=== PATIENT | female | born 1955 | race Caucasian/White ===

== ENCOUNTER → 2018-08-05 09:23 | Outpatient (CLI) | payer OTHER, SELFPAY ==
--- NOTE | 2018-08-05 09:27 | RAD_ITS ---
STUDY: AIR-CONTRAST UPPER GI SERIES AND SMALL BOWEL FOLLOW-THROUGH EXAMINATION. REASON FOR EXAM: Female, 62 years old. Left upper quadrant pain. FLUOROSCOPY TIME (if supplied): (1:24) minutes/seconds. 18 images were obtained. TECHNIQUE: The patient ingested barium. Multiple images of the esophagus, stomach and duodenum were obtained. Following this, a small bowel follow through examination was performed. COMPARISON: None. FINDINGS: The esophagus is unremarkable. There is no evidence of mass lesion. No evidence of gastroesophageal reflux. The stomach and duodenum are unremarkable. There is no evidence of ulceration. No mass lesion is present. A small bowel follow-through examination was then performed. The small bowel transit is normal. There is no evidence of intrinsic or extrinsic small bowel disease. The terminal ileum is unremarkable. RAD/Upper GI/w Small Bowel IMPRESSION: Unremarkable air contrast upper GI series and small bowel follow-through examination. Electronically Signed: Keaton Blanco MD at 10:07 EST Tel [phone], Service support ,
== END ==
PROVIDERS: Family Provider Family Medicine; PCP Family Medicine; Referring Provider Nurse Practitioner Family; Visit Provider Nurse Practitioner Family
DX: R10.12 Left upper quadrant pain (principal)
CPT/HCPCS: 74249

== ENCOUNTER 2019-01-12 07:34 | Emergency (ER) | payer OTHER, SELFPAY ==
[2019-01-12 07:35] VITALS: BP 137/66; PULSE 86; RESP 16; TEMP 37.1; O2SAT 96; BMI 24.0
--- NOTE | 2019-01-12 08:35 | CT_ITS ---
STUDY: CT ABDOMEN AND PELVIS WITH CONTRAST REASON FOR EXAM: Female, 63 years old. Left lower quadrant abdominal pain RADIATION DOSAGE (If Supplied By Facility): CTDIvol = ( 9.44 ) mGy, DLP = ( 592.81 ) mGycm TECHNIQUE: Transaxial images were obtained from the dome of the diaphragm to the symphysis pubis with oral contrast. 100 IV/Oral Isovue 300 was administered. Sagittal and coronal images were reconstructed. Individualized dose optimization techniques were used for this CT. COMPARISON: None. FINDINGS: Scarring in the lung bases. The visualized portions of the heart are within normal limits. Normal liver. Normal gallbladder and extrahepatic biliary system. Normal spleen. Normal pancreas. Normal bilateral adrenal glands. Normal right kidney. Normal left kidney. There is a small hiatal hernia. Normal small intestine. There is diverticulosis, with thickening of the descending colon wall, and pericolonic inflammation changes consistent with acute diverticulitis. The appendix is visualized and appears normal. Normal abdominal aorta. Normal inferior vena cava. Normal retroperitoneum. Normal urinary bladder. There is absence of the uterus consistent with a prior hysterectomy. Normal abdominal wall. There are diffuse degenerative changes of the visualized lumbar spine. CT/Abdomen/Pelvis WITH Contrast IMPRESSION: Acute uncomplicated descending colonic diverticulitis. Electronically Signed: Asad Hunt DO at 11:21 EDT Tel , Service support ,
[2019-01-12] MEDS: Morphine 4 MG/ML Syringe IV (08:46)
[2019-01-12] MEDS: 0.9% Normal Saline 1,000 ML 150 ML IV (08:46)
[2019-01-12] MEDS: Ondansetron 4 MG/2 ML Vial IV (08:47)
[2019-01-12 08:50] LABS: Absolute Lymphocyte Count 1.06 X10^3/ul (0.83-4.51); Absolute Neutrophil Count 10.6 X10^3/uL (2.0-7.7); Basophil# 0.02 X10^3/uL; Basophil% 0.2 % (0-1); Eosinophil# 0.19 X10^3/uL; Eosinophils% 1.5 % (0-5); Hemoglobin 13.4 g/dl (12.0-15.0); Lymphocyte # 1.06 X10^3/ul (4.0); Lymphocyte % 8.3 % (19-41); Mean Corp Hgb Conc 32.7 g/gl (32-36); Mean Corpuscular Volume 88.7 fL (81-99); Mean Platelet Vol. 9.3 fl (6.2-12.0); Monocyte# 0.95 X10^3/uL; Monocyte% 7.4 % (0-10); Neutrophil % 82.4 % (47-70); Platelet Count 261 K/mm3 (150-450); RBC Distribution Width CV 14.1 % (11.6-14.6); Red Blood Count 4.62 M/mm3 (4.2-5.4); White Blood Count 12.8 K/mm3 (4.4-11.0)
[2019-01-12 08:51] LABS: POSITIVE COUNT NO; POSITIVE DIFFERENTIAL NO; POSITIVE MORPHOLOGY NO
[2019-01-12 08:55] LABS: Anion Gap 7 (5-15); BUN 14 mg/dL (7-18); BUN/Creat Ratio 17.3 RATIO (10-20); Calcium,Total 8.8 mg/dL (8.5-10.1); Chloride 106 mmol/L (98-107); Creatinine, Serum 0.81 mg/dL (0.55-1.02); EST Glomerular Filtration Rate 76 mL/min (>60); Est Glom Filt Rate - Afr Amer 91 mL/min (>60); Estimated Creatinine Clearance 60.59 ml/min; Glucose 122 mg/dL (74-106); Potassium 3.7 mmol/L (3.5-5.1); Sodium Level 138 mmol/L (136-145)
--- NOTE | 2019-01-12 09:20 | ED.VISSUMM ---
- ER Visit Summary Date of Service: 01/12/19 Chief Complaint: Abdominal pain History of Present Illness: The patient is a 63 F with 3 to 4-day history of left lower quadrant abdominal pain. Patient states the pain got worse yesterday. She did note some chills and sweats yesterday. She reports decreased appetite. She has not noted diarrhea or constipation. She went to urgent care initially where her urine was clear and she was sent to the emergency room for further evaluation. Patient does report history of diverticulitis several years in the past. She states she has had some problems with intermittent reflux. Prior surgical history significant for hysterectomy. Physical Examination: Vital signs unremarkable. Patient sitting upright in bed no acute distress. Heart is regular rate and rhythm. Lung sounds are clear. Abdomen is soft with focal tenderness in the left lower quadrant. There is no guarding or rebound. Hypoactive bowel sounds are present. Back examination reveals no CVA tenderness. Test Results: CBC was a white count 12.8 with 82% neutrophils. Chemistry studies normal. CT abdomen pelvis with contrast reveals acute uncomplicated diverticulitis. Emergency Department Course and Treatment: Patient was initially given morphine and Zofran for pain and nausea. Test results are discussed with the patient. She will be treated with a course of Cipro and Flagyl, first doses given here. She was given return instructions. Treatment Plan: [] Disposition: Discharge Impression: Diverticulitis This note was generated with [employer] dictation software. It may contain incorrect words, spelling, and punctuation that were not noted in review of the chart prior to signing ED Disposition - Plan for ED Patient: Disposition: Home or Assisted Living Instructions: Diverticulitis Prescriptions: Ciprofloxacin [Cipro] 500 mg PO BID #14 tab Prescription Printed metroNIDAZOLE [Flagyl] 500 mg PO Q6H #40 tab Prescription Printed Referrals: Jeffrey Mcgill III, MD [Primary Care Provider] - 1 Week
[2019-01-12 10:17] VITALS: BP 117/61; PULSE 75; RESP 16; O2SAT 95
[2019-01-12 12:00] VITALS: BP 116/60; PULSE 76; PULSE 77; RESP 16; O2SAT 93
[2019-01-12] MEDS: metroNIDAZOLE 500 MG Tablet PO (12:01)
[2019-01-12] MEDS: Ciprofloxacin 500 MG Tablet PO (12:01)
== END 2019-01-12 12:58 | disposition home or self-care (01) ==
PROVIDERS: Emergency Provider Emergency Medicine; Family Provider Family Medicine; PCP Family Medicine
DX: K57.32 Diverticulitis of large intestine without perforation or abscess without bleeding (principal); K21.9 Gastro-esophageal reflux disease without esophagitis; Z79.82 Long term (current) use of aspirin; Z79.899 Other long term (current) drug therapy; Z90.710 Acquired absence of both cervix and uterus
CPT/HCPCS: 74177; 80048; 85025; 96361; 96374; 96375; 99284; J7030; Q9967; A4216; J2405

== ENCOUNTER 2019-01-18 10:19 | Emergency (ER) | payer OTHER, SELFPAY ==
[2019-01-18 10:20] VITALS: BP 152/77; PULSE 72; RESP 16; TEMP 36.2; O2SAT 96; BMI 23.9
--- NOTE | 2019-01-18 10:33 | ED.DCSUM_ITS ---
History of Present Illness <Jared Coello - Last Filed: 01/18/19 11:09> Informant: Patient Onset: Today Narrative: Patient presents to the ED stating this morning she developed feelings of bladder spasming. She is afraid she may have a urinary tract infection. 6 days ago, she was at this facility and diagnosed with diverticulitis and discharged home with ciprofloxacin and Flagyl. Patient states she has been taking her medications as prescribed and actually feels as though her diverticulitis symptoms are improving. She has an appointment with her PCP to follow-up in 2 days, however did not feel she could wait until then. She denies any fever, chills, nausea, vomiting, flank pain, dysuria. <Leanne Bolanos - Last Filed: 01/18/19 11:12> Chief Complaint: Complaint Past Medical History <Jared Coello - Last Filed: 01/18/19 11:09> Smoking Status: Never smoker <Leanne Bolanos - Last Filed: 01/18/19 11:12> - Allergies and Home Meds Allergies/Adverse Reactions: Allergies No Known Allergies Allergy (Verified 01/18/19 10:21) Primary Care Physician: Jeffrey Mcgill III, MD [Primary Care Provider] - Review of Systems General: Denies: Chills, Fever, Sweats Eyes: Denies: Visual changes - bilaterally, Diplopia ENT: Denies: Rhinorrhea, Sore throat Cardiovascular: Denies: Chest pain, Palpitations Respiratory: Denies: Dyspnea, Cough, Dyspnea on exertion Gastrointestinal: Denies: Abdominal pain, Nausea, Vomiting, Diarrhea, Melena, Hematochezia Genitourinary: Reports: - - Bladder spasms. Denies: Dysuria, Hematuria, Frequency Musculoskeletal: Denies: Back pain, Extremity Pain Skin: Denies: Rash, Wounds Neurological: Denies: Headache, Weakness, Numbness <Leanne Bolanos - Last Filed: 01/18/19 11:12> Physical Exam Vital Signs/Narrative: Vital Signs Temp Pulse Resp BP Pulse Ox 01/18/19 10:20 97.2 F L 72 16 152/77 H 96 <Jared Coello - Last Filed: 01/18/19 11:09> Vital Signs/Narrative: Vital Signs Temp Pulse Resp BP Pulse Ox 01/18/19 10:20 97.2 F L 72 16 152/77 H 96 General: Well nourished, Well developed, No Acute Distress Head: Normocephalic, Atraumatic Eyes: Perrl, EOMI ENT: Moist mucous membranes, No rhinorrhea Neck: Supple, Nontender Cardiovascular: Regular rate, Regular rhythm, No murmurs Respiratory: No distress, CTA bilaterally, Chest nontender Abdomen: Soft, Nontender, Nondistended, Normal bowel sounds Back: Nontender, Normal Inspection, - - No CVA tenderness bilaterally. Extremities: Nontender, No edema Skin: Normal color, No rash Neurological: Alert, Oriented x3, Cranial nerves II-XII grossly intact, Normal Strength, Normal Sensation Psychological: Normal affect, Normal Mood <Leanne Bolanos - Last Filed: 01/18/19 11:12> Diagnostic/Tx/Re-eval - Medical Decision Making Clinically, my suspicion is the patient likely has some bladder irritation from underlying diverticulitis. She had no symptoms of fistula. She had no fever. Her urine is unremarkable. Her symptoms of actually been improving as far as her diverticulitis is concerned. At this point I do feel that she is safe for outpatient therapy. She was counseled concerning symptoms and reasons to return. <Jared Coello - Last Filed: 01/18/19 11:09> - Medical Decision Making Patient presents to the ED with primary complaint of feeling of bladder muscle spasms. Upon arrival, she appears well nontoxic. Vital signs within normal limits. Her abdomen is soft and nontender with no guarding or rigidity. She benavidez s no CVA tenderness. She does claim her diverticulitis symptoms are improving. Urinalysis is fairly unremarkable. At this time, I do not think further work-up is warranted. Patient was educated that this cramping may be residual symptom from her diverticulitis. She was advised to continue her antibiotic as prescribed and take [id number] analgesics. She will follow-up with her PCP as scheduled in 2 days. She was educated on signs/symptoms to return the ED. She is provided discharge instructions. She is agreeable to plan. <Leanne Bolanos - Last Filed: 01/18/19 11:12> ED Disposition <Jared Coello - Last Filed: 01/18/19 11:09> <Leanne Bolanos - Last Filed: 01/18/19 11:12> - Plan for ED Patient: Disposition: Home or Assisted Living Diagnosis: Diverticulitis Instructions: Diverticulitis Referrals: Jeffrey Mcgill III, MD [Primary Care Provider] -
[2019-01-18 10:41] LABS: Bacteria 0 SEEN /hpf (None Seen); Mucous, Urine 0 SEEN /hpf (<or=2+); Red Blood Cells-Urine 0 SEEN /hpf (0-5); White Blood Cells 0 SEEN /hpf (0-5)
[2019-01-18 11:02] LABS: Color, Urine Yellow (Yellow); Glucose, Dipstick Normal (Normal); Ketone-Dipstick Negative (Negative); Leukocyte Esterase-Dipstick 25 /ul (Negative); Nitrite-Dipstick Negative (Negative); Occult Blood-Urine Negative /ul (Negative); Protein-Dipstick Negative (Negative); Specific Gravity, Urine 1.005 (1.002-1.030); Squamous Epithelial Cells - UA 0-5 SEEN /hpf (5-10); Urine Bilirubin Dipstick Negative (Negative); Urine Clarity Clear (Clear); Urine Urobilinogen Normal (Normal); Urine pH 6.5 (5.0 - 8.0)
--- NOTE | 2019-01-18 11:19 | ED.RN ---
DISCHARGE INSTRUCTIONS GIVEN TO AND REVIEWED WITH PATIENT, PATIENT DENIES QUESTIONS OR CONCERNS AND VOICES UNDERSTANDING OF DISCHARGE INSTRUCTIONS. PT AMBULATES OUT OF ROOM WITHOUT DIFFICULTY.
== END 2019-01-18 11:20 | disposition home or self-care (01) ==
LOC: ED 11:16
PROVIDERS: Emergency Provider Physician Assistant; Family Provider Family Medicine; PCP Family Medicine
DX: K57.92 Diverticulitis of intestine, part unspecified, without perforation or abscess without bleeding (principal)
CPT/HCPCS: 81001; 99282

== ENCOUNTER 2021-10-14 13:10 | Emergency (ER) | payer MEDICARE, SELFPAY ==
[2021-10-14 13:13] VITALS: BP 164/70; PULSE 90; RESP 14; TEMP 35.5; O2SAT 98; BMI 22.7
--- NOTE | 2021-10-14 13:23 | EKG12_ITS ---
Test Reason : CP Blood Pressure : / mmHG Vent. Rate : 071 BPM Atrial Rate : 071 BPM P-R Int : 142 ms QRS Dur : 082 ms QT Int : 384 ms P-R-T Axes : 051 028 043 degrees QTc Int : 417 ms Normal sinus rhythm Normal ECG Confirmed by JAYLEN ANDERSON MD ([id number]), index editor GENESIS ESPOSITO ([id number]) on 10/17/2021 10:58:25 AM Referred By: VALERIE Confirmed By:JAYLEN ANDERSON MD
--- NOTE | 2021-10-14 13:54 | EKG12_ITS ---
Test Reason : Blood Pressure : / mmHG Vent. Rate : 067 BPM Atrial Rate : 067 BPM P-R Int : 128 ms QRS Dur : 082 ms QT Int : 404 ms P-R-T Axes : 024 041 047 degrees QTc Int : 426 ms Normal sinus rhythm Normal ECG Confirmed by MONICA SHETTY, JAYLEN ([id number]), editor greeting card GENESIS ESPOSITO ([id number]) on 10/17/2021 10:44:05 AM Referred By: VALERIE Confirmed By:JAYLEN ANDERSON MD
--- NOTE | 2021-10-14 13:54 | RAD_ITS ---
STUDY: X-RAY CHEST REASON FOR EXAM: Female, 66 years old. chest pain TECHNIQUE: Single AP portable view of the chest. COMPARISON: None. FINDINGS: The lungs are clear and expanded. There is no demonstrated pleural abnormality. Normal size heart. Normal mediastinum and jada. Normal visualized pulmonary arteries. Normal visualized aortic arch and descending thoracic aorta. Normal visualized thoracic spine. Normal visualized ribs, clavicles, and shoulders. There is no demonstrated abnormality of the visualized soft tissue structures of the upper abdomen. RAD/Chest 1 View (Portable) IMPRESSION: Normal x-ray examination of the chest. Electronically Signed: Palmer Littlejohn MD at 14:54 EDT ,
--- NOTE | 2021-10-14 13:55 | ED.VIS.CHEST ---
HPI History of Present Illness Chief Complaint: Chest Pain Detail of Chief Complaint: Chest pain that started yesterday Informant: patient Narrative Narrative: Patient presents to the emergency department complaint of chest discomfort that started yesterday after dinner. Patient describes a pressure/ache in the center of her chest that she rates currently a 7 out of 10. She denies any radiation to the arm or neck or jaw. She denies shortness of breath. She has had some nausea and decreased appetite today. She denies exertional dyspnea. She is not had discomfort like this before. Patient has no other medical history. She has no heart history. Patient is not a smoker. Patient states pain worse at times with certain movements. She is not had any exertional chest pain or exertional shortness of breath. [facility] Medical History (Updated 10/14/21 @ 15:[address] Edson Merchant, ) Parathyroid abnormality Home Medications aspirin 81 mg PO DAILY@0800 01/12/19 [History Last Taken Unknown] Allergy/AdvReac Type Severity Reaction Status Date / Time No Known Allergies Allergy Verified 10/14/21 13:13 Surgical History H/O: hysterectomy Social History Smoking Status: Never smoker ROS ROS ED Review of Systems ROS Unobtainable: other Constitutional Constitutional ED: Reports lethargy; Denies chills, fever(s), sweats or weight loss Eyes Eyes: Denies blurry vision, change in vision or diplopia ENT ENT ED: Denies rhinorrhea or sore throat Cardiovascular Cardiovascular: Reports chest pain and racing heartbeat; Denies orthopnea Respiratory/Chest Respiratory/Chest: Reports dyspnea and dyspnea on exertion; Denies cough, orthopnea or sputum Gastrointestinal Gastrointestinal: Denies abdominal pain, diarrhea, nausea or vomiting Genitourinary Genitourinary ED: Denies dysuria, hematuria or urinary frequency Musculoskeletal Musculoskeletal: Denies arthralgias, back pain, myalgias or neck pain Integumentary Denies abscess, Abrasions or rash Neurologic Neurologic: Denies headache(s) or weakness Psychiatric Psychiatric: Denies anxiety, depression or suicidal thoughts Endocrine Endocrinology: Denies polydipsia, polyphagia or polyuria Hematologic/Lymphatic Hematologic/Lymphatic: Denies easy bleeding, easy bruising or lymphadenopathy Allergic/Immunologic Allergic/Immunologic ED: Denies mouth swelling, tongue swelling or urticaria EXAM Physical Exam Const Vital Signs: 10/14/21 13:13 10/14/21 14:29 10/14/21 14:31 Temperature 96 F L Temperature Source Temporal Pulse Rate 90 75 Respiratory Rate 14 Blood Pressure 164/70 H 164/76 H Blood Pressure Mean 101 Pulse Ox 98 Oxygen Delivery Method Room Air Room Air 10/14/21 15:13 Temperature Temperature Source Pulse Rate 66 Respiratory Rate 17 Blood Pressure 137/72 H Blood Pressure Mean 93 Pulse Ox 98 Oxygen Delivery Method Room Air Positive well nourished and well developed General Appearance ED: well developed and NAD HEENT Reports TM's clear and moist mucous membranes normocephalic and atraumatic; Negative for trauma or tenderness Tympanic Membrane ED: Yes TM's clear Eyes PERRL and EOMs intact bilaterally General Eye ED: Negative for pale conjunctiva or scleral icterus Neck no lymphadenopathy, supple and no JVD General: Negative for tenderness Chest Wall inspection of chest normal and palpation of chest normal Chest: Negative for tenderness Resp normal respiratory effort and clear to auscultation bilaterally Effort and Inspection: Negative for respiratory distress or pain with movement Auscultation: Negative for rhonchi, wheezes or diminished lung sounds Cardio regular rate, regular rhythm, S1 normal heart sound, S2 normal heart sound and no murmurs Peripheral Pulses: pulses 2+ throughout GI normal to inspection, nondistended, normoactive bowel sounds, soft to palpation, non-tender, non-distended and no masses Back/Spine no CVA tenderness and no thoracic nor lumbar tenderness Extremity normal to inspection General Extremety ED: Negative for edema General Extremity: Negative for edema Neuro oriented x3, CN's II-XII intact bilaterally, no sensory deficits noted and gait normal Sensorium / Orientation: awake, alert, oriented to person, oriented to place and oriented to time Motor Exam: strength 5/5 throughout and strength abnormal Psych mental status grossly normal Skin no rashes or lesions noted and no wounds Heart Score History: Moderately Suspicious ECG: Normal Age: >/= 65 years Risk Factors: No Risk Factors Troponin: </= Normal Limit Score: 3 MDM MDM MDM Narrative Medical decision making narrative: IV established. Patient placed on a cardiac sonographer. Patient was given aspirin and then subsequently given sublingual nitro which apparently gave her headache and she had increased chest discomfort with that. Patient was then given 4 mg of morphine which really seem to resolve her pain. Her lab work-up was normal. Her D-dimer was normal. Her chest x-ray was normal. Patient I feel is low risk with a heart score of 3. Shared decision making-I discussed treatment options with patient as etiology of her chest pain is unclear. Given that she is had continuous pain for more than 12 hours and has normal EKG and normal troponin and low risk profile I did offer to admit her for stress testing which would might not be done until Saturday and today being Saturday. The other option would be to discharge patient and have her follow-up with her primary care physician and have outpatient stress testing potentially if her symptoms persist. Patient tells me that she fell a few weeks ago and injured her back when she fell again some steps and she thought perhaps some of that pain was radiating around to the front of her chest. At this point etiology of her chest pain is unclear although I feel she is low risk for acute coronary syndrome. Patient does not want to be admitted and would prefer to follow-up with her primary care physician. She will return if symptoms worsen in any way. A second EKG was obtained after patient initially complained of more pain after nitro and this was read by myself as normal sinus rhythm with a rate of 67 bpm with no acute ST segment changes. Lab Data Attestation: I reviewed the patient's lab results. Labs: Laboratory Results - last 24 hr 10/14/21 10/14/21 10/14/21 14:10 14:10 14:10 WBC 8.2 RBC 4.90 Hgb 14.4 Hct 43.6 MCV 89.0 MCH 29.4 MCHC 33.0 RDW Std Deviation 43.7 RDW Coeff of Darrell 13.3 Plt Count 283 MPV 9.0 Immature Gran % (Auto) 0.100 Neut % (Auto) 76.1 H Lymph % (Auto) 18.5 L [place] % (Auto) 4.3 Eos % (Auto) 0.6 Baso % (Auto) 0.4 Absolute Neuts (auto) 6.2 Absolute Lymphs (auto) 1.51 Nucleated RBC % 0 D-Dimer Quant (PE/DVT) 0.31 Sodium 140 Potassium 3.7 Chloride 107 Carbon Dioxide 28.0 Anion Gap 5 BUN 14 Creatinine 0.71 Estim Creat Clear Calc 47.14 Est GFR (MDRD) Af Amer 106 Est GFR (MDRD) Non-Af 88 BUN/Creatinine Ratio 19.8 Glucose 101 Calcium 9.4 Troponin I High Sens < 3 L Radiography Chest X-Ray - ED: 1 View Diagnostic Testing: Clinical Impression(s) from Imaging Studies Chest X-Ray 10/14/21 13:54 IMPRESSION: Normal x-ray examination of the chest. Electronically Signed: Palmer Littlejohn MD at 14:54 EDT , 1 view chest x-ray obtained interpreted by myself as no acute disease process. Radiology in agreement. EKG Initial EKG: Attestation: I personally reviewed and interpreted this EKG as follows: Comments: Sinus rhythm with a rate of 71 bpm with no acute ST segment changes Discharge Plan Triage Chief Complaint: Chest Pain ED Provider: Edson Merchant Dx/Rx/DC Orders Clinical Impression: Chest pain Instructions: ED Chest Pain, Uncertain Cause Prescriptions: No Action aspirin 81 MG tablet,chewable 81 mg PO DAILY@0800 RF: 0 Primary Care Provider: James Peña Referrals: James Peña MD [Primary Care Provider] - 3-5 Days Disposition Disposition: Home, Self Care
[2021-10-14 14:15] LABS: Absolute Lymphocyte Count 1.51 X10^3/uL (0.83-4.51); Absolute Neutrophil Count 6.2 X10^3/uL (2.0-7.7); Basophil# 0.03 X10^3/uL; Basophil% 0.4 % (0-1); Eosinophil# 0.05 X10^3/uL; Eosinophils% 0.6 % (0-5); Hematocrit 43.6 % (37-47); Hemoglobin 14.4 g/dL (12.0-15.0); Lymphocyte # 1.51 X10^3/ul (0.83-4.51); Lymphocyte % 18.5 % (19-41); Mean Corpuscular Hgb 29.4 pg (27.0-32.0); Monocyte# 0.35 X10^3/uL; Monocyte% 4.3 % (0-10); NRBC Flagged by Analyzer 0 % (0-5); Neutrophil % 76.1 % (47-70); Platelet Count 283 K/mm3 (150-450); RBC Distribution Width CV 13.3 % (11.6-14.6); RBC Distribution Width SD 43.7 fl (35.1-43.9); White Blood Count 8.2 K/mm3 (4.4-11.0)
[2021-10-14] MEDS: Aspirin 81 MG TAB.CHEW 324 MG PO (14:21)
[2021-10-14 14:26] LABS: D-Dimer Quantitative (DVT/PE) 0.31 FEU/ug/m (0.27-0.49)
[2021-10-14] MEDS: 0.9% Normal Saline 1,000 ML 150 ML IV (14:28)
[2021-10-14 14:29] VITALS: BP 164/76; PULSE 75
[2021-10-14] MEDS: Nitroglycerin SL (ED/IMG/CATH) 0.4 MG TABLET SL (14:29)
[2021-10-14 14:34] LABS: Anion Gap 5 (5-15); BUN 14 mg/dL (7-18); BUN/Creat Ratio 19.8 RATIO (10-20); Calcium,Total 9.4 mg/dL (8.5-10.1); Chloride 107 mmol/L (98-107); Creatinine, Serum 0.71 mg/dL (0.55-1.02); EST Glomerular Filtration Rate 88 mL/min (>60); Est Glom Filt Rate - Afr Amer 106 mL/min (>60); Estimated Creatinine Clearance 47.14 ml/min; Glucose 101 mg/dL (74-106); Potassium 3.7 mmol/L (3.5-5.1); Sodium Level 140 mmol/L (136-145); Troponin-I HS < 3 pg/mL (3.0-54.0)
[2021-10-14] MEDS: Morphine 4 MG/ML Syringe IV (14:46)
[2021-10-14 15:13] VITALS: BP 137/72; PULSE 66; RESP 17; O2SAT 98
[2021-10-14 16:00] VITALS: BP 134/68; PULSE 71; RESP 15; O2SAT 99
== END 2021-10-14 16:01 | disposition home or self-care (01) ==
PROVIDERS: Emergency Provider Emergency Medicine; PCP Family Medicine; Visit Provider Emergency Medicine
DX: R07.9 Chest pain, unspecified (principal); R11.0 Nausea; R06.00 Dyspnea, unspecified; Z79.82 Long term (current) use of aspirin
CPT/HCPCS: 71045; 80048; 84484; 85025; 85379; 93005; 96361; 96374; 99285; A4216

== ENCOUNTER 2022-01-20 19:40 | Emergency (ER) | payer MEDICARE, SELFPAY ==
[2022-01-20 19:41] VITALS: BP 130/75; PULSE 94; RESP 16; TEMP 36.4; O2SAT 98; BMI 23.1
[2022-01-20 19:42] VITALS: BP 130/75; PULSE 94; RESP 16; TEMP 36.4; O2SAT 98
--- NOTE | 2022-01-20 20:03 | CT_ITS ---
STUDY: CT ABDOMEN AND PELVIS WITH CONTRAST REASON FOR EXAM: Female, 66 years old. llq abdominal pain RADIATION DOSAGE (If Supplied By Facility): CTDIvol = ( 9.89 ) mGy, DLP = ( 456.20 ) mGycm TECHNIQUE: Transaxial images were obtained from the dome of the diaphragm to the symphysis pubis without oral contrast. IV 100mL Isovue-370 was administered. Sagittal and coronal images were reconstructed. Individualized dose optimization techniques were used for this CT. COMPARISON: 01/12/2019 FINDINGS: The visualized lung bases are unremarkable. The visualized portions of the heart are within normal limits. Normal liver. Normal gallbladder and extrahepatic biliary system. Normal spleen. Normal pancreas. Normal bilateral adrenal glands. Normal right kidney. Normal left kidney. Normal visualized stomach. Normal small intestine. There are multiple colonic diverticula consistent with diverticulosis. There is non-visualization of the appendix. Normal abdominal aorta. Normal inferior vena cava. Normal retroperitoneum. Normal urinary bladder. Normal abdominal wall. 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 5 mm of anterolisthesis of L5 on S1 consistent with grade [address]/Abdomen/Pelvis W IV Cont ONLY IMPRESSION: Normal enhanced CT of the abdomen and pelvis. Electronically Signed: Palmer Littlejohn MD at 22:21 EDT ,
--- NOTE | 2022-01-20 20:05 | ED.VIS.GI ---
HPI HPI - GI History of Present Illness Chief Complaint: Abd Pain Narrative Narrative: 60-year-old female with distant history of diverticulitis with 24 hours of cramping lower abdominal pain. She admits to diarrhea and excess gas. She states her pain is 6 out of 10 today. She was seen in urgent care yesterday on 01 28. She was told to come to the emergency room but she did not. Patient has not had any fever, chills, nausea, vomiting. From abdominal surgery was a hysterectomy. No urinary complaints. No vaginal complaints. PFSH PFSH Medical History Acute sinusitis, unspecified Diverticulitis Encounter for screening for COVID-19 Parathyroid abnormality Home Medications aspirin 81 mg chewable tablet 81 mg PO DAILY@0800 01/12/19 [History Last Taken Unknown] amoxicillin 875 mg-potassium clavulanate 125 mg tablet 1 tab PO BID #24 tabs 01/20/22 [Rx Last Taken Unknown] Allergy/AdvReac Type Severity Reaction Status Date / Time No Known Allergies Allergy Verified 01/20/22 19:42 Family History (Updated 01/20/22 @ 20:[address] Edilia Prieto MD) Mother Heart disease Hypertension Hx of CABG Father Heart disease PAF (paroxysmal atrial fibrillation) Surgical History H/O: hysterectomy Social History Smoking Status: Never smoker ROS ROS ED Constitutional Constitutional ED: Denies chills or fever(s) ENT ENT ED: Denies rhinorrhea or sore throat Cardiovascular Cardiovascular: Denies chest pain or palpitations Respiratory/Chest Respiratory/Chest: Denies cough or dyspnea Gastrointestinal Gastrointestinal: Reports abdominal pain and diarrhea Genitourinary Genitourinary ED: Denies dysuria or hematuria Musculoskeletal Musculoskeletal: Denies arthralgias or back pain Integumentary Denies abscess or Abrasions Neurologic Neurologic: Denies headache(s) or paresthesias Psychiatric Psychiatric: Denies anxiety or depression EXAM Physical Exam Const Vital Signs: 01/20/22 19:41 01/20/22 19:42 01/20/22 21:04 Temperature 97.5 F L 97.5 F L 98.7 F Temperature Source Temporal Temporal Oral Pulse Rate 94 94 81 Respiratory Rate 16 16 16 Blood Pressure 130/75 H 130/75 H 124/54 H Blood Pressure Mean 93 93 77 Pulse Ox 98 98 95 Oxygen Delivery Method Room Air Room Air Room Air 01/20/22 22:00 Temperature Temperature Source Pulse Rate 82 Respiratory Rate 16 Blood Pressure 128/60 H Blood Pressure Mean 82 Pulse Ox 96 Oxygen Delivery Method Room Air Positive well nourished General Appearance ED: NAD and pallor HEENT Reports moist mucous membranes normocephalic and atraumatic Eyes PERRL and EOMs intact bilaterally General Eye ED: Negative for pale conjunctiva or scleral icterus Cardio regular rate and regular rhythm GI GI Narrative: And is palpation left lower quadrant right lower quadrant. Abdomen has no peritoneal signs. Back/Spine no CVA tenderness Neuro CN's II-XII intact bilaterally Sensorium / Orientation: alert Psych mental status grossly normal Skin General Skin Exam: jaundice and pallor MDM MDM MDM Narrative Medical decision making narrative: Patient presented with lower abdominal pain. She is not had a fever or nausea, vomiting. She states that the pain has been persistent. She has a history of diverticulitis. CBC is obtained and this shows a leukocytosis of 15.6. There is a slight left shift. Hemoglobin hematocrit are stable. Platelets normal. Renal function electrolytes within normal limits. Urinalysis negative for infection but does show small amount of urine ketones. Patient was given IV fluids. CT abdomen pelvis with IV contrast interpreted by the radiologist as normal. Given her history of diverticulitis I will treat her as this and she will be started on Augmentin here in the ED. She declines analgesia and antiemetics. She is given return precautions. Impression: 1 abdominal pain 2. Diverticulitis 3. Leukocytosis Lab Data Attestation: I reviewed the patient's lab results. Labs: Laboratory Results - last 24 hr 01/20/22 01/20/22 01/20/22 19:58 19:58 19:58 WBC 15.6 H RBC 4.66 Hgb 13.8 Hct 40.9 MCV 87.8 MCH 29.6 MCHC 33.7 RDW Std Deviation 43.1 RDW Coeff of Darrell 13.3 Plt Count 302 MPV 9.4 Immature Gran % (Auto) 0.400 Neut % (Auto) 78.5 H Lymph % (Auto) 13.2 L [place] % (Auto) 6.0 Eos % (Auto) 1.6 Baso % (Auto) 0.3 Absolute Neuts (auto) 12.3 H Absolute Lymphs (auto) 2.06 Nucleated RBC % 0 Sodium 139 Potassium 3.7 Chloride 106 Carbon Dioxide 25.0 Anion Gap 8 BUN 10 Creatinine 0.74 Estim Creat Clear Calc 47.14 Est GFR (MDRD) Af Amer 100 Est GFR (MDRD) Non-Af 83 BUN/Creatinine Ratio 13.5 Glucose 101 Calcium 9.5 Urine Color Yellow Urine Clarity Clear Urine pH 6.0 Ur Specific [place] 1.015 Urine Protein 15 H Urine Glucose (UA) Normal Urine Ketones 150 A* Urine Occult Blood 10 H Urine Nitrite Negative Urine Bilirubin Negative Urine Urobilinogen Normal Ur Leukocyte Esterase 25 H Radiography Diagnostic Testing: Clinical Impression(s) from Imaging Studies Abdomen/Pelvis CT 01/20/22 20:03 IMPRESSION: Normal enhanced CT of the abdomen and pelvis. Electronically Signed: Palmer Littlejohn MD at 22:21 EDT , Discharge Plan Triage Chief Complaint: Abd Pain ED Provider: Joaquin Washington Dx/Rx/DC Orders Instructions: ED Diverticulitis Prescriptions: New amoxicillin-pot clavulanate 875-125 mg tablet 1 tab PO BID Qty: 24 0RF No Action aspirin 81 MG tablet,chewable 81 mg PO DAILY@0800 Primary Care Provider: James Peña Referrals: James Peña MD [Primary Care Provider] - Disposition Disposition: Home, Self Care
[2022-01-20 20:18] LABS: Absolute Lymphocyte Count 2.06 X10^3/uL (0.83-4.51); Absolute Neutrophil Count 12.3 X10^3/uL (2.0-7.7); Basophil# 0.04 X10^3/uL; Basophil% 0.3 % (0-1); Eosinophil# 0.25 X10^3/uL; Eosinophils% 1.6 % (0-5); Hematocrit 40.9 % (37-47); Hemoglobin 13.8 g/dL (12.0-15.0); Lymphocyte # 2.06 X10^3/ul (0.83-4.51); Lymphocyte % 13.2 % (19-41); Mean Corp Hgb Conc 33.7 g/dL (32-36); Mean Corpuscular Hgb 29.6 pg (27.0-32.0); Mean Corpuscular Volume 87.8 fL (81-99); Mean Platelet Vol. 9.4 fl (6.2-12.0); Monocyte# 0.93 X10^3/uL; NRBC Flagged by Analyzer 0 % (0-5); Neutrophil # 12.26 X10^3/uL (2.7-7.7); Neutrophil % 78.5 % (47-70); Platelet Count 302 K/mm3 (150-450); RBC Distribution Width CV 13.3 % (11.6-14.6); RBC Distribution Width SD 43.1 fl (35.1-43.9); Red Blood Count 4.66 M/mm3 (4.2-5.4); White Blood Count 15.6 K/mm3 (4.4-11.0)
[2022-01-20 20:27] LABS: Color, Urine Yellow (Yellow); Glucose, Dipstick Normal (Normal); Leukocyte Esterase-Dipstick 25 /ul (Negative); Nitrite-Dipstick Negative (Negative); Occult Blood-Urine 10 /ul (Negative); Protein-Dipstick 15 mg/dl (Negative); Specific Gravity, Urine 1.015 (1.002-1.030); Urine Bilirubin Dipstick Negative (Negative); Urine Clarity Clear (Clear); Urine Urobilinogen Normal (Normal)
[2022-01-20 20:30] LABS: Ketone-Dipstick 150 mg/dl (Negative)
[2022-01-20 20:39] LABS: Anion Gap 8 (5-15); BUN 10 mg/dL (7-18); BUN/Creat Ratio 13.5 RATIO (10-20); Calcium,Total 9.5 mg/dL (8.5-10.1); Chloride 106 mmol/L (98-107); Creatinine, Serum 0.74 mg/dL (0.55-1.02); EST Glomerular Filtration Rate 83 mL/min (>60); Est Glom Filt Rate - Afr Amer 100 mL/min (>60); Estimated Creatinine Clearance 47.14 ml/min; Glucose 101 mg/dL (74-106); Potassium 3.7 mmol/L (3.5-5.1); Sodium Level 139 mmol/L (136-145)
[2022-01-20] MEDS: 0.9% Normal Saline 1,000 ML 999 ML IV (21:01)
[2022-01-20 21:04] VITALS: BP 124/54; PULSE 81; RESP 16; TEMP 37.1; O2SAT 95
[2022-01-20 22:00] VITALS: BP 128/60; PULSE 82; RESP 16; O2SAT 96
[2022-01-20 22:37] VITALS: BP 124/60; PULSE 78; RESP 16; O2SAT 96
[2022-01-20] MEDS: Amox/Clavulanate 875 MG Tablet PO (22:38)
== END 2022-01-20 22:40 | disposition home or self-care (01) ==
PROVIDERS: Emergency Provider Student in an Organized Health Care Education/Training Program; PCP Family Medicine; Visit Provider Student in an Organized Health Care Education/Training Program
DX: K57.92 Diverticulitis of intestine, part unspecified, without perforation or abscess without bleeding (principal); D72.829 Elevated white blood cell count, unspecified; R14.0 Abdominal distension (gaseous); Z79.82 Long term (current) use of aspirin
CPT/HCPCS: 74177; 80048; 81002; 85025; 96360; 96361; 99283; J7030; Q9967; A4216

== ENCOUNTER 2024-08-05 13:21 | Emergency (ER) | payer MEDICARE, SELFPAY ==
[2024-08-05 13:21] VITALS: BP 142/78; PULSE 88; RESP 18; TEMP 36.9; O2SAT 98; BMI 24.9
[2024-08-05 14:10] LABS: Absolute Lymphocyte Count 1.81 X10^3/uL (0.83-4.51); Absolute Neutrophil Count 7.2 X10^3/uL (2.0-7.7); Basophil# 0.05 X10^3/uL; Basophil% 0.5 % (0-1); Eosinophil# 0.19 X10^3/uL; Eosinophils% 1.9 % (0-5); Hematocrit 42.6 % (37-47); Hemoglobin 13.7 g/dL (12.0-15.0); Lymphocyte # 1.81 X10^3/ul (0.83-4.51); Lymphocyte % 18.1 % (19-41); Mean Corp Hgb Conc 32.2 g/dL (32-36); Mean Corpuscular Hgb 28.6 pg (27.0-32.0); Mean Corpuscular Volume 88.9 fL (81-99); Mean Platelet Vol. 9.6 fl (6.2-12.0); Monocyte# 0.61 X10^3/uL; Monocyte% 6.1 % (0-10); NRBC Flagged by Analyzer 0 % (0-5); Neutrophil # 7.19 X10^3/uL (2.7-7.7); Neutrophil % 71.7 % (47-70); Platelet Count 308 K/mm3 (150-450); RBC Distribution Width CV 13.6 % (11.6-14.6); RBC Distribution Width SD 44.3 fl (35.1-43.9); Red Blood Count 4.79 M/mm3 (4.2-5.4)
--- NOTE | 2024-08-05 14:15 | EDS_ITS ---
HPI History of Present Illness Chief Complaint: Abd Pain Narrative Narrative: Patient is a 68-year-old female past medical history of diverticulitis, parathyroid abnormality who presented to the emergency department with a chief complaint of abdominal pain. Patient states that she was evaluate by her primary care physician and was told to come to the emergency department with a concern of diverticulitis in the setting of fever. Patient states I have had a low-grade fever at 99 at home the past few days. Patient states that on Saturday evening she started not feeling well and by Saturday morning she noted that she had left lower quadrant abdominal pain that had progressively worsened however she was waiting to get into be seen by her family doctor before coming here. Patient states that she has transitioned herself to a soft diet in hopes to help with the pain. PFSH PFSH Medical History Diverticulitis Encounter for screening for COVID-19 Acute sinusitis, unspecified Parathyroid abnormality Home Medications ?Medication ?Instructions ?Recorded ?Last Taken ?Type aspirin 81 mg chewable tablet 81 mg PO DAILY@0800 01/12/19 Unknown History amoxicillin 875 mg-potassium 1 tab PO Q12H 7 days #14 tabs 08/05/24 Unknown Rx clavulanate 125 mg tablet ondansetron 4 mg disintegrating 4 mg PO Q6H PRN nausea and 08/05/24 Unknown Rx tablet vomiting #20 tabs oxycodone-acetaminophen 5 mg-325 1 tab PO Q6H PRN pain 3 days #12 08/05/24 Unknown Rx mg tablet tabs Allergy/AdvReac Type Severity Reaction Status Date / Time No Known Allergies Allergy Verified 08/05/24 13:21 Family History Mother Heart disease Hypertension Hx of CABG Father Heart disease PAF (paroxysmal atrial fibrillation) Surgical History H/O: hysterectomy Social History Smoking Status: Never smoker ROS ROS ED ROS Narrative Constitutional: Complains of fever as noted above denies any headaches, lightness, dizziness Cardiovascular: Denies chest pain Respiratory: Denies shortness of breath Abdomen: Complains of abdominal pain as noted above denies nausea vomiting diarrhea denies dark tarry stools denies blood in her stool : Denies any urinary symptoms Neurological: Denies numbness, weakness, tingling Musculoskeletal: Denies back pain Skin: Denies any rashes or lesions EXAM Physical Exam Narrative Exam Narrative: General: Patient lying in bed rest comfortably did not appear to be acute distress Head: Atraumatic, normocephalic Eyes: PERRL bilateral, EOMI bilateral, no conjunctival injection noted Neck: Soft, supple, trachea midline Cardiovascular: Regular rate and rhythm no murmurs gallops rubs noted Respiratory: Clear to auscultation bilaterally Abdomen: Soft, nondistended, tenderness palpation left lower quadrant no rebound or guarding on exam, bowel sounds present x 4 Extremities: +5/5 strength noted in the bilateral upper and lower extremities, radial pulses +2/4 in the bilateral upper extremities, no pedal edema on exam Neurological: Patient functions that she was at [facility] year is 2024 Skin: Warm, dry, intact Const Vital Signs: 08/05/24 13:21 08/05/24 15:43 08/05/24 17:02 Temperature 98.4 F Temperature Source Oral Pulse Rate 88 78 75 Respiratory Rate 18 18 18 Blood Pressure 142/78 H 150/60 H 148/70 H Blood Pressure Mean 99 90 96 Pulse Ox 98 98 97 Oxygen Delivery Method Room Air Room Air Room Air MDM MDM MDM Narrative Medical decision making narrative: Patient is a 68-year-old female who presented to the emergency department the chief complaint of left lower quadrant abdominal pain. On the differential diagnose includes but not limited to diverticulitis, colitis, viral gastroenteritis, bowel obstruction. Once workup is obtained reviewed she will be reevaluated. Patient states that she has not anything for pain or nausea at this point time. Patient CBC reviewed and showed no evidence leukocytosis white blood cell normal at 10, hemoglobin 13.7, plate count normal at 308. Patient sodium normal 137, potassium normal at 4, creatinine normal at 0.76. Patient AST and ALT were 12 and 16 respectively. Patient's lipase normal at 39, urinalysis did not show any evidence of infection negative nitrites 25 leukocyte esterase 0-5 white cells with 5-10 squamous epithelial cells and 2+ bacteria this is likely contaminant sample she does not have any urinary symptoms we will just send this for culture. She was advised to follow-up on this with her primary care physician as well. Patient CT abdomen pelvis with IV contrast was reviewed and showed evidence of acute diverticulitis of the proximal descending colon no abscess or perforation noted. Patient will be given a course of Augmentin and she will be advised to use a clear liquid diet for the next 3 days and then advance diet as tolerated. She will be given a prescription for Percocet and Zofran for severe pain otherwise she is to use Tylenol and ibuprofen for mild to moderate pain. She is to follow-up with her primary care physician and Dr. Cruz she is agreeable this plan as well as her significant other at bedside all question concerns answered she was discharged home in stable condition. Lab Data Labs: Laboratory Results - last 24 hr 08/05/24 08/05/24 13:33 14:24 WBC 10.0 RBC 4.79 Hgb 13.7 Hct 42.6 MCV 88.9 MCH 28.6 MCHC 32.2 RDW Std Deviation 44.3 H RDW Coeff of Darrell 13.6 Plt Count 308 MPV 9.6 Immature Gran % (Auto) 1.700 H Neut % (Auto) 71.7 H Lymph % (Auto) 18.1 L [place] % (Auto) 6.1 Eos % (Auto) 1.9 Baso % (Auto) 0.5 Absolute Neuts (auto) 7.2 Absolute Lymphs (auto) 1.81 Nucleated RBC % 0 Sodium 137 Potassium 4.0 Chloride 106 Carbon Dioxide 27.0 Anion Gap 4 L BUN 13 Creatinine 0.76 Estim Creat Clear Calc 62.01 Est GFR (MDRD) Af Amer 96 Est GFR (MDRD) Non-Af 80 BUN/Creatinine Ratio 17.0 Glucose 104 Calcium 9.4 Total Bilirubin 0.70 AST 12 L ALT 16 Alkaline Phosphatase 130 H Total Protein 7.4 Albumin 3.7 Globulin 3.7 Albumin/Globulin Ratio 1.0 Lipase 39 Urine Color Straw Urine Clarity Clear Urine pH 6.0 Ur Specific [place] 1.015 Urine Protein Negative Urine Glucose (UA) Normal Urine Ketones 50 H Urine Occult Blood Negative Urine Nitrite Negative Urine Bilirubin Negative Urine Urobilinogen Normal Ur Leukocyte Esterase 25 H Urine RBC 0 SEEN Urine WBC 0-5 SEEN Ur Squamous Epith Cells 5-10 SEEN Urine Bacteria 2+ Urine Mucus 0 SEEN Radiography Diagnostic Testing: Clinical Impression(s) from Imaging Studies Abdomen/Pelvis CT 08/05/24 15:30 IMPRESSION: Colonic diverticula with inflammation surrounding the proximal descending colon compatible with acute diverticulitis. There is no abscess or perforation. Electronically Signed: Dominic Samspon MD at 16:49 EST , Discharge Plan Triage Chief Complaint: Abd Pain ED Provider: Curtis Tee Dx/Rx/DC Orders Clinical Impression: Diverticulitis, Abdominal pain Prescriptions: New amoxicillin-pot clavulanate 875-125 mg tablet 1 tab PO Q12H 7 Days Qty: 14 0RF oxycodone-acetaminophen 5-325 mg tablet 1 tab PO Q6H PRN (Reason: pain) 3 Days Qty: 12 0RF ondansetron 4 mg tablet,disintegrating 4 mg PO Q6H PRN (Reason: nausea and vomiting) Qty: 20 0RF No Action aspirin 81 MG tablet,chewable 81 mg PO DAILY@0800 Primary Care Provider: James Peña Referrals: James Peña MD [Primary Care Provider] - Alycia Cruz MD [Med Staff - Active Staff] - Print Language: Hungarian Disposition Disposition: Home, Self Care
[2024-08-05] MEDS: 0.9% Normal Saline (1000mL) 1,000 ML 999 ML IV (14:21)
[2024-08-05 14:29] LABS: Mucous, Urine 0 SEEN /hpf (<or=2+); Red Blood Cells-Urine 0 SEEN /hpf (0-5)
[2024-08-05 14:31] LABS: AST(SGOT) 12 U/L (15-37); Alanine Aminotransfer ALT/SGPT 16 U/L (13-56); Albumin, Serum 3.7 g/dL (3.2-5.0); Alkaline Phosphatase 130 U/L (45-117); Anion Gap 4 (5-15); BUN 13 mg/dL (7-18); Calcium,Total 9.4 mg/dL (8.5-10.1); Chloride 106 mmol/L (98-107); Creatinine, Serum 0.76 mg/dL (0.55-1.02); EST Glomerular Filtration Rate 80 mL/min (>60); Est Glom Filt Rate - Afr Amer 96 mL/min (>60); Estimated Creatinine Clearance 62.01 ml/min; Globulin 3.7 g/dL (2.2-4.2); Glucose 104 mg/dL (74-106); Lipase 39 U/L (13-75); Protein, Total 7.4 g/dL (6.4-8.2); Sodium Level 137 mmol/L (136-145)
[2024-08-05 14:39] LABS: Color, Urine Straw (Yellow); Glucose, Dipstick Normal (Normal); Ketone-Dipstick 50 mg/dl (Negative); Leukocyte Esterase-Dipstick 25 /ul (Negative); Nitrite-Dipstick Negative (Negative); Occult Blood-Urine Negative /ul (Negative); Protein-Dipstick Negative (Negative); Specific Gravity, Urine 1.015 (1.002-1.030); Urine Bilirubin Dipstick Negative (Negative); Urine Clarity Clear (Clear); Urine Urobilinogen Normal (Normal)
[2024-08-05 14:45] LABS: Bacteria 2+ /hpf (None Seen); Squamous Epithelial Cells - UA 5-10 SEEN /hpf (5-10); White Blood Cells 0-5 SEEN /hpf (0-5)
--- NOTE | 2024-08-05 15:30 | CT_ITS ---
EXAM: CT ABDOMEN AND PELVIS WITH INTRAVENOUS CONTRAST CLINICAL INDICATION: LLQ abd pain TECHNIQUE: Helically acquired images were obtained of the abdomen and pelvis with intravenous contrast. This CT exam was performed using one or more of the following dose reduction techniques: automated exposure control, adjustment of the mA and/or kV according to patient size, and/or use of iterative reconstruction technique. CONTRAST: IV 100mL [id number]-300 COMPARISON: 01/20/2022 FINDINGS: LOWER THORAX: Unremarkable. Lung bases are clear. No cardiomegaly. No significant pericardial effusion. ABDOMEN: LIVER: Unremarkable. Homogeneous. No focal mass. GALLBLADDER AND BILE DUCTS: Unremarkable. No calcified gallstones. No gallbladder distention or wall edema. No intra- or extrahepatic biliary ductal dilation. PANCREAS: Unremarkable. No focal cystic or solid mass. SPLEEN: Unremarkable. Normal size without focal cystic or solid mass. ADRENALS: Unremarkable. No nodules. KIDNEYS AND URETERS: Unremarkable. Normal renal size and position. No hydronephrosis. STOMACH AND BOWEL: There is inflammation seen surrounding the proximal sigmoid colon compatible with diverticulitis. There is no abscess or perforation identified. There are diverticula of the descending and sigmoid colon. No stomach or bowel distention. PELVIS: APPENDIX: No evidence of acute appendicitis. BLADDER: Unremarkable. REPRODUCTIVE: Patient status post hysterectomy. ABDOMEN and PELVIS: INTRAPERITONEAL SPACE: Unremarkable. No ascites or other fluid collection. No free air. BONES/JOINTS: Unremarkable. No suspicious lytic or blastic abnormality. SOFT TISSUES: Unremarkable. No discrete abdominal or pelvic wall hernia. VASCULATURE: Unremarkable. Abdominal aorta is non-dilated. LYMPH NODES: Unremarkable. No enlarged lymph nodes. CT/Abdomen/Pelvis W IV Cont ONLY IMPRESSION: Colonic diverticula with inflammation surrounding the proximal descending colon compatible with acute diverticulitis. There is no abscess or perforation. Electronically Signed: Dominic Sampson MD at 16:49 EST ,
[2024-08-05 15:43] VITALS: BP 150/60; PULSE 78; RESP 18; O2SAT 98
[2024-08-05 17:02] VITALS: BP 148/70; PULSE 75; RESP 18; O2SAT 97
[2024-08-05 17:48] VITALS: BP 144/70; PULSE 72; RESP 18; TEMP 36.7; O2SAT 97
== END 2024-08-05 17:49 | disposition home or self-care (01) ==
PROVIDERS: Emergency Provider Emergency Medicine; PCP Family Medicine; Visit Provider Emergency Medicine
DX: K57.32 Diverticulitis of large intestine without perforation or abscess without bleeding (principal)